=== PATIENT | male | born 1970 | race Caucasian/White ===

== ENCOUNTER 2022-04-19 15:49 | Emergency (ER) | payer MEDICAID ==
[~2022-04-19] VITALS: Ht 170.2 cm; Wt 120.5 kg
[2022-04-19 16:27] VITALS: BP 149/85
[2022-04-19] MEDS ORDERED: ibuprofen tablet 400 MG TABLET PO ONE (17:25)
[2022-04-19] MEDS ORDERED: HYDR-3972 PO (17:50)
== END 2022-04-19 18:00 | disposition home or self-care (01) ==
LOC: ER 15:50
DX: M25.531 Pain in right wrist (principal); I10 Essential (primary) hypertension; Z88.8 Allergy status to other drugs, medicaments and biological substances; Z79.899 Other long term (current) drug therapy; W19.XXXA Unspecified fall, initial encounter; Y93.89 Activity, other specified; Y92.89 Other specified places as the place of occurrence of the external cause; Y99.8 Other external cause status
CPT/HCPCS: 29125; 73110; 99283